=== PATIENT | male | born 1940 | race African-American/Black ===

== ENCOUNTER 2016-12-19 20:09 | Emergency (ER) | payer MEDICARE, MEDICAID ==
[~2016-12-19] VITALS: Ht 175.3 cm; Wt 73.6 kg
[~2016-12-19 20:09] MED LIST: ALBU6.7H INH; AMLO10TA80 PO; ATROV INH; CARI350T PO; DIAZ10TA PO; FERR-63 PO; IOHEXOL-300 100 ML BOTTLE ONE; LEVO500T15 PO; OMEP20TA80 PO; SODIUM CHLORIDE 0.9% 10ML VIAL ONE; SUCR1TAB PO; VIC GT
[2016-12-19] MEDS ORDERED: SODIUM CHLORIDE 0.9% 500 ML IV ONE (21:27)
[2016-12-19 22:47] LABS: CHLORIDE 108 mEq/L (98-107)
[2016-12-19 22:50] LABS: CARBON DIOXIDE 23 mEq/L (21-32)
[2016-12-19 22:58] LABS: TROPONIN I < 0.02 ng/mL (0.00-0.04)
[2016-12-19 23:00] LABS: BASOPHILS % 1.2 % (0.0-2.0); EOSINOPHILS % 2.5 % (0.0-5.0); HEMATOCRIT. 31.2 % (42.0-52.0); HEMOGLOBIN. 10.7 g/dL (14.0-18.0); LYMPHOCYTES % 21.4 % (20.0-50.0); MEAN CORPUSCULAR HEMOGLOBIN 33.8 pg (28.0-32.0); MEAN CORPUSCULAR VOLUME 98.4 fL (80.0-94.0); MONOCYTES % 13.3 % (2.0-8.0); NEUTROPHILS % 61.6 % (40.0-76.0); PLATELET 201 x1000/uL (130-400); RED BLOOD CELL COUNT 3.17 mill/uL (4.7-6.1); RED CELL DISTRIBUTION WIDTH 13.3 % (11.6-14.6)
[2016-12-19 23:09] LABS: INR 1.1; PROTHROMBIN TIME 11.4 sec
[2016-12-19 23:57] LABS: CLARITY URINE CLEAR (CLEAR); COLOR URINE YELLOW (YELLOW); GLUCOSE URINE NEGATIVE (NEGATIVE); KETONES URINE NEGATIVE (NEGATIVE); LEUKOCYTE ESTERASE URINE NEGATIVE (NEGATIVE); NITRITE URINE NEGATIVE (NEGATIVE); OCCULT BLOOD URINE NEGATIVE (NEGATIVE); PROTEIN URINE NEGATIVE (NEGATIVE); SPECIFIC GRAVITY URINE 1.011 (1.005-1.030); UROBILINOGEN URINE 0.2 E.U./dL (0.2-1.0)
[2016-12-20] MEDS ORDERED: MINERAL OIL ENEMA 133ML PR ONE (00:45)
[2016-12-20 02:40] VITALS: BP 165/99
== END 2016-12-20 02:54 | disposition home or self-care (01) ==
LOC: ER 20:25
DX: K59.00 Constipation, unspecified (principal); R30.0 Dysuria; J45.909 Unspecified asthma, uncomplicated; I10 Essential (primary) hypertension
CPT/HCPCS: 36415; 71010; 74177; 80053; 81003; 83690; 84484; 85025; 85610; 96360; 96361; 99285; A4216; J7030; Q9967

== ENCOUNTER 2016-12-25 17:49 | Observation (INO) | payer MEDICARE, MEDICAID ==
[~2016-12-25] VITALS: Ht 175.3 cm; Wt 74.8 kg
[~2016-12-25 17:49] MED LIST changes: -IOHEXOL-300 100 ML BOTTLE ONE; -SODIUM CHLORIDE 0.9% 10ML VIAL ONE
[2016-12-25 18:37] LABS: HEMATOCRIT 37.1 % (42.0-52.0); HEMOGLOBIN 12.5 g/dL (14.0-18.0); MEAN CORPUSCULAR HEMOGLOBIN 33.1 pg (28.0-32.0); MEAN CORPUSCULAR VOLUME 98.5 fL (80.0-94.0); PLATELET 265 x1000/uL (130-400); RED BLOOD CELL COUNT 3.77 mill/uL (4.7-6.1); RED CELL DISTRIBUTION WIDTH 13.6 % (11.6-14.6)
[2016-12-25 19:20] LABS: *AMPHETAMINES SCREEN URINE NEGATIVE (NEGATIVE); *BARBITURATES SCREEN URINE NEGATIVE (NEGATIVE); *BENZODIAZEPINES SCREEN URINE PRESUMTIVE POSITIVE (NEGATIVE); *COCAINE SCREEN URINE NEGATIVE (NEGATIVE); CANNABINOID URINE SCREEN NEGATIVE (NEGATIVE); METHADONE URINE SCREEN NEGATIVE (NEGATIVE); OPIATES URINE SCREEN NEGATIVE (NEGATIVE); PHENCYCLIDINE URINE SCREEN NEGATIVE (NEGATIVE)
[2016-12-25 20:19] LABS: CLARITY URINE TURBID (CLEAR); COLOR URINE YELLOW (YELLOW); GLUCOSE URINE NEGATIVE (NEGATIVE); KETONES URINE NEGATIVE (NEGATIVE); LEUKOCYTE ESTERASE URINE 3+ (NEGATIVE); NITRITE URINE NEGATIVE (NEGATIVE); OCCULT BLOOD URINE 2+ (NEGATIVE); PH URINE 5.5 (4.5-8.0); PROTEIN URINE 2+ (NEGATIVE); SPECIFIC GRAVITY URINE 1.015 (1.005-1.030); UROBILINOGEN URINE 0.2 E.U./dL (0.2-1.0)
[2016-12-25] MEDS ORDERED: CEFTRIAXONE 1 G PREMIX 50 ML IV ONE (21:45)
[2016-12-26 00:50] VITALS: BP 116/80
[2016-12-26] MEDS ORDERED: ASPI-1159 PO (01:27)
[2016-12-26] MEDS ORDERED: DEXT 5%/0.45% NACL 1000ML 1,000 ML IV SCH (01:30)
[2016-12-26] MEDS ORDERED: ONDANSETRON HCL 4MG/2ML VIAL IV PRN (01:30)
[2016-12-26] MEDS ORDERED: CLONIDINE 0.1MG TABLET PO PRN (01:30)
[2016-12-26] MEDS: MORPHINE SULFATE 2 MG/ML CPJ (NOT FOR IM USE) IV PRN ×2 (02:05→16:51)
[2016-12-26] MEDS: PIPERACILLIN/TAZ 2.25G PREMIX 50 ML IV SCH ×3 (03:53→15:41)
[2016-12-26 03:59] VITALS: BP 117/59
[2016-12-26] MEDS ORDERED: PIPERACILLIN/TAZOBACTAM 3.375GM/50ML PREMIX IV SCH (06:00)
[2016-12-26 08:00] VITALS: BP 130/70
[2016-12-26] MEDS ORDERED: ENOXAPARIN 40MG/0.4ML SYR SUBCUT SCH (09:00)
[2016-12-26] MEDS ORDERED: PANTOPRAZOLE 40MG DR TABLET PO SCH (09:00)
[2016-12-26] MEDS ORDERED: ENOXAPARIN 30MG/0.3ML SYR SUBCUT SCH (09:00)
[2016-12-26] MEDS ORDERED: AMLODIPINE 5MG TABLET PO SCH (09:00)
[2016-12-26 12:00] VITALS: BP 95/56
[2016-12-26 13:07] LABS: HEMATOCRIT. 33.5 % (42.0-52.0); HEMOGLOBIN. 11.2 g/dL (14.0-18.0); MEAN CORPUSCULAR HEMOGLOBIN 32.9 pg (28.0-32.0); MEAN CORPUSCULAR VOLUME 98.5 fL (80.0-94.0); MEAN PLATELET VOLUME 8.7 fl (7.4-10.4); PLATELET 235 x1000/uL (130-400); RED CELL DISTRIBUTION WIDTH 13.8 % (11.6-14.6)
[2016-12-26 13:35] LABS: CARBON DIOXIDE 22 mEq/L (21-32); CHLORIDE 100 mEq/L (98-107)
[2016-12-26 16:00] VITALS: BP 118/64
[2016-12-26 16:51] VITALS: BP 118/64
[2016-12-26 17:48] LABS: PLATELET ESTIMATE NORMAL
== END 2016-12-26 18:49 | disposition left against medical advice (07) ==
LOC: ER 18:17 → 6EST 22:25 → INTOOBSV 22:25 → ENRESERV 22:34 → UNDODISIN 12-26 11:15
PROVIDERS: ADMIT Internal Medicine; ATTEND Internal Medicine
DX: A41.9 Sepsis, unspecified organism (principal); N39.0 Urinary tract infection, site not specified; I10 Essential (primary) hypertension; M19.90 Unspecified osteoarthritis, unspecified site; J44.9 Chronic obstructive pulmonary disease, unspecified
CPT/HCPCS: 36415; 74176; 80048; 80053; 80305; 81001; 85025; 85027; 87040; 87077; 87086; 87186; 96365; 96367; 96372; 96375; 96376; 99285; G0378; J0696; J1650; J2270; J2543; J3490